=== PATIENT | female | born 1960 ===

== ENCOUNTER 2016-03-25 23:29 | Emergency (ER) | payer MEDICAID, OTHER ==
[~2016-03-25] VITALS: Ht 162.6 cm; Wt 59.1 kg
[2016-03-25 23:41] VITALS: BP 140/105; PULSE 79; RESP 20; O2SAT 95
[2016-03-25 23:47] VITALS: BP 133/95; PULSE 87; RESP 18; O2SAT 99
--- NOTE | 2016-03-25 23:48 | ED.REPORT ---
HPI-NVD Date of Service Mar 25, 2016 ED Provider: Dr. Vin Brush MD A 55 year old female with a history of EtOH abuse presents to the ED via EMS complaining of nausea/vomiting that began earlier this evening. Patient last drank EtOH 3 days ago. Her symptoms have been constant since onset. Patient is a poor historian. Nursing Notes Stated Complaint: NAUSEA, VOMITING Chief Complaint: Female Abdominal Pain Nursing Notes Reviewed: Yes Allergies: Coded Allergies: No Known Allergies (Unverified , 03/25/16) General Time Seen by MD: 23:47 Chief Complaint Nausea, Vomiting Hx Obtained From: Patient Arrived By: Ambulance Onset Occurred: 1 - 4 hours ago Symptom Duration: Since onset Location: : No pain Pertinent Negative: Pt denies other symptoms Recent Healthcare: No recent doctor visit, No recent hospitalization Past Medical History Past Medical History None reported. Past Surgical History None reported. Smoking History Unknown if Ever Smoker Social History Hx of EtOH abuse Other Social History: Local resident Ambulatory Status Independent Review of Systems Constitutional: Denies: Chills, Fever GI: Reports: Nausea, Vomiting, Denies: Abdominal pain Neurologic: Denies: Change LOC Complete sys rev & neg: except as marked. Respiratory: Denies: Shortness of breath Cardiovascular: Denies: Chest pain Physical Exam Initial Vital Signs Vital Signs (First) Date Time Temp Pulse Resp B/P Pulse Ox O2 Delivery O2 Flow Rate FiO2 03/25/16 23:41 37.4 79 20 140/105 95 Room Air Initial VS: Reviewed Head / Eyes: Atraumatic, Normocephalic, PERRL Neck: Supple, Non-tender, Full range of motion Extremities: Vascular intact, Neuro intact, No swelling, No tenderness Skin: Warm, Dry, No cyanosis Psychiatric: Mood/affect normal, Behavior normal, Normal thought content General/Constitutional: Awake, Alert, Not toxic appearing Abdomen: Atraumatic, Soft, Non-tender Respiratory / Chest: Atraumatic, Breath sounds NL, Breath sounds = bilat Cardiovascular: Regular rhythm, Heart sounds NL Heart Rate / Rhythm: Positive: Tachycardia Neurologic: Oriented X3, Speech NL Movement Abnormality: Positive: Tremor Interpretation & Diagnostics Lab Results Interpretation Result Diagram: 03/26/16 0010 03/26/16 0010 Test 03/26/16 00:10 03/26/16 02:45 White Blood Count 8.1th/mm3 (3.8-10.1) Red Blood Count 4.74mil/mm3 (3.90-5.20) Hemoglobin 14.5g/dL (12.0-15.6) Hematocrit 42.0% (35.0-46.0) Mean Corpuscular Volume 88.6fL (81-100) Mean Corpuscular Hemoglobin 30.6pg (27.0-35.0) Mean Corpuscular Hemoglobin Concent 34.5% (32.0-37.0) Red Cell Distribution Width 12.7% (12.3-15.4) Platelet Count 151bil/L (150-400) Neutrophils (%) (Auto) 71.0% (40-74) Lymphocytes (%) (Auto) 14.0% (14-46) Monocytes (%) (Auto) 14.4% (4-12) Eosinophils (%) (Auto) 0% (0-5) Basophils (%) (Auto) 0.4% (0-3) Sodium Level 136mEq/L (134-144) Potassium Level 2.9mEq/L (3.5-5.2) Chloride Level 87mEq/L (97-108) Carbon Dioxide Level 26mmol/L (18-29) Blood Urea Nitrogen 16mg/dL (6-24) Creatinine 0.86mg/dL (0.57-1.00) Estimat Glomerular Filtration Rate 98mL/min (>59) Glucose Level 104mg/dL (60-99) Lactic Acid Level 2.6mmol/L (0.4-2.0) Calcium Level 9.3mg/dL (8.5-10.1) Total Bilirubin 1.5mg/dL (0.0-1.2) Aspartate Amino Transf (AST/SGOT) 49U/L (0-50) Alanine Aminotransferase (ALT/SGPT) 25U/L (0-32) Alkaline Phosphatase 122U/L (25-150) Total Protein 9.6g/dL (6.4-8.4) Albumin 4.5g/dL (3.4-5.0) Alcohol, Quantitative 28mg/dL (0-10) Troponin T 0.010ug/L (0.0-0.011) ECG Interpretation ECG Interpretation: Sinus Rhythm Rate 82 Atrial premature complexes Time: 00:01 Interpreted by: ED physician Re-Eval/Medical Decision Re-Evaluation/Progress : Time of Eval: 01:24 Patient Status: Condition improved Re-Evaluation/Progress Note: Patient is rechecked. She is informed of her lab results, EKG results and diagnosis. All questions are addressed. She understands and agrees with the treatment plan. Counseled Regarding: Diagnosis, Lab results, Need for follow-up, When/why to return to ED Discharge & Departure Impression: Primary Impression: Vomiting Vomiting type: unspecified Vomiting Intractability: unspecified Nausea presence: unspecified Qualified Code: R11.10 - Vomiting, unspecified Additional Impressions: Hypokalemia Alcohol abuse Disposition: Home Discharge Condition All VS Reviewed: Yes Condition: Stable Patient Instructions: Abuse of Alcohol (ED), Acute Nausea and Vomiting (ED), Hypokalemia (ED) Additional Instructions: Thank you for trusting us with your care this evening. Your potassium levels today were low, I recommend you increase potassium rich foods in your diet. Take 1 Zofran every 8 hours as needed for nausea and take 1 Ativan every hours as needed for anxiety. Please abstain from using alcohol. Do not consume any alcohol while taking the Ativan. Do not drive tonight. Call your doctor first thing in the morning to set up a follow-up appointment. See referral for acholics anonymous and please attend their meetings. Please return to the emergency department for any new or worsening symptoms. Referrals: [facility] Alcoholics Anonymous (AA) Scribe Attestation Portions of this note were transcribed by Letty Voss. I, Dr. Brush personally performed the history, physical exam and medical decision-making; I reviewed and confirmed the accuracy of the information in the transcribed note. Signed by: Elin Subramanian, 03/26/16 0200. Vin Brush DO Mar 25, 2016 23:47 LETTY VOSS Mar 25, 2016 23:51 LETTY VOSS Mar 25, 2016 23:51
[2016-03-26 00:20] LABS: BASOPHILS % (AUTO) 0.4 % (0-3); EOSINOPHILS % (AUTO) 0 % (0-5); MONOCYTES % (AUTO) 14.4 % (4-12); Mean Corpuscular Hemoglobin 30.6 pg (27.0-35.0); Mean Corpuscular Volume 88.6 fL (81-100); Platelet Count 151 bil/L (150-400)
[2016-03-26] MEDS ORDERED: Thiamine Inj 100 MG, Folic Acid Inj 1 MG, Magnesium Sulfate 50% Inj 2 GM, Multivitamins... IV ONE ×5 (00:35)
[2016-03-26] MEDS ORDERED: Ondansetron 2 mg/mL 2 mL Inj IVPUSH PRN (00:35)
[2016-03-26] MEDS ORDERED: Potassium Chloride 20 mEq SR Tablet PO ONE (01:10)
[2016-03-26 01:52] VITALS: BP 118/80; PULSE 94; RESP 20; O2SAT 94
[2016-03-26] MEDS ORDERED: _LORazepam 1 mg Tablet PO PRN (02:20)
[2016-03-26] MEDS ORDERED: _Ondansetron ODT 4 mg Tablet PO PRN (02:20)
[2016-03-26 03:47] VITALS: BP 111/77; PULSE 93; RESP 16; O2SAT 95
== END 2016-03-26 04:00 | disposition home or self-care (01) ==
LOC: EDBD 23:29 → SED 23:29
DX: R11.10 Vomiting, unspecified (principal); E87.6 Hypokalemia; F10.10 Alcohol abuse, uncomplicated
CPT/HCPCS: 36415; 80053; 83605; 84484; 85025; 93005; 96374; 96375; 99285; G0480; J2405; J3360; J3475; J7030